=== PATIENT | male | born 1990 | race Caucasian/White ===

== ENCOUNTER 2020-04-12 10:46 | Emergency (ER) | payer SELFPAY ==
[~2020-04-12] VITALS: Ht 180.3 cm; Wt 71.7 kg
[2020-04-12 10:46] VITALS: BP 132/76
[2020-04-12] MEDS ORDERED: LIDOCAINE 2%/EPI 1:100,000 20 ML VIAL. IJ ONE (11:15)
[2020-04-12] MEDS ORDERED: NEOMY/BACITR/POLYMYXIN OINT PACKET. TP ONE (11:15)
[2020-04-12] MEDS ORDERED: IBUPROFEN 400 MG TABLET. PO ONE (11:30)
[2020-04-12] MEDS ORDERED: DIPH,PERTUSS(ACELL),TET VAC/PF 0.5 ML SYRINGE. VAX IM ONE (11:30)
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
== END 2020-04-12 13:00 | disposition home or self-care (01) ==
LOC: ER 10:46
DX: S01.81XA Laceration without foreign body of other part of head, initial encounter (principal); Y00.XXXA Assault by blunt object, initial encounter; Y93.89 Activity, other specified; Y92.89 Other specified places as the place of occurrence of the external cause; Y99.8 Other external cause status
CPT/HCPCS: 12002; 12013; 90471; 90715; 99283; 99284

== ENCOUNTER 2020-09-16 01:37 | Emergency (ER) | payer SELFPAY ==
[~2020-09-16] VITALS: Ht 180.3 cm; Wt 71.7 kg
--- NOTE | 2020-09-16 01:53 | PHYS DOC ---
Past History Past Medical History: No Pertinent History Past Surgical History: No Surgical History Smoking: Non-smoker Alcohol Use: None Drug Use: None Adult General [facility] HPI Patient is a 30-year-old male with a past medical history of anxiety and depression who presents with a chief complaint of suicidal ideation and cutting/lacerations. States he has been just having a hard time here recently with anxiety and depression and thoughts of worthlessness with increased anxiety and depression despite starting Prozac recently. States his boyfriend and he had been having trouble over the last week or 2 and tonight he broke up with him and decided to cut on himself. States initially he felt like he did not want to be alive and that so I cut himself but right now his not sure how he feels. Denies ever doing anything like this before, homicidal ideation or hallucinations. Denies any drug use. Denies any recent traumas, travels, illnesses, fevers, cold/flu symptoms. States he had a tetanus vaccination 6 months ago and is up-to-date. Review of Systems Review of Systems Review of systems otherwise unremarkable outside noted in HPI. Allergies Allergies Allergies Coded Allergies Type Severity Reaction Last Updated Verified No Known Drug Allergies 04/12/20 No Physical Exam Physical Exam Constitutional: Well developed, well nourished, no acute distress, non-toxic appearance. [] HENT: Normocephalic, atraumatic, bilateral external ears normal, oropharynx moist, Eyes: PERRLA, EOMI, conjunctiva normal, no discharge. [] Neck: Normal range of motion, no tenderness, supple, no stridor. [] Cardiovascular: Sinus bradycardia Lungs & Thorax: Bilateral breath sounds clear to auscultation [] Abdomen: soft, no tenderness, no masses, no pulsatile masses. [] Skin: Warm, dry, no erythema, no rash. [] Extremities: Patient with 3 long lacerations on left forearm. The most medial is through the fat down to the muscle fascia with no violation of muscle. Neurovascular exam intact. Hemostasis achieved. Neurologic: Alert and oriented X 3, normal motor function, normal sensory function, no focal deficits noted. [] Psychologic: Patient is tearful, anxious with thoughts of suicide and initial plan was cutting, but patient is unsure now how he feels exactly. Denies ho micidal ideation or hallucinations. Current Patient Data Lab Results Laboratory Tests Test 1/19/21 02:00 09/16/20 03:20 09/16/20 04:20 White Blood Count 6.5 x10^3/uL (4.0-11.0) Red Blood Count 4.50 x10^6/uL (4.30-5.70) Hemoglobin 13.4 g/dL (13.0-17.5) Hematocrit 39.6 % (39.0-53.0) Mean Corpuscular Volume 88 fL (79-100) Mean Corpuscular Hemoglobin 30 pg (25-35) Mean Corpuscular Hemoglobin Concent 34 g/dL (31-37) Red Cell Distribution Width 13.6 % (11.5-14.5) Platelet Count 209 x10^3/uL (140-400) Neutrophils (%) (Auto) 60 % (31-73) Lymphocytes (%) (Auto) 32 % (24-48) Monocytes (%) (Auto) 7 % (0-9) Eosinophils (%) (Auto) 1 % (0-3) Basophils (%) (Auto) 0 % (0-3) Neutrophils # (Auto) 3.9 x10^3uL (1.8-7.7) Lymphocytes # (Auto) 2.1 x10^3/uL (1.0-4.8) Monocytes # (Auto) 0.5 x10^3/uL (0.0-1.1) Eosinophils # (Auto) 0.0 x10^3/uL (0.0-0.7) Basophils # (Auto) 0.0 x10^3/uL (0.0-0.2) Sodium Level 141 mmol/L (136-145) Potassium Level 3.5 mmol/L (3.5-5.1) Chloride Level 105 mmol/L (98-107) Carbon Dioxide Level 25 mmol/L (21-32) Anion Gap 11 (6-14) Blood Urea Nitrogen 9 mg/dL (8-26) Creatinine 0.7 mg/dL (0.7-1.3) Estimated GFR (Cockcroft-Gault) 133.3 BUN/Creatinine Ratio 13 (6-20) Glucose Level 99 mg/dL (70-99) Calcium Level 8.5 mg/dL (8.5-10.1) Total Bilirubin 0.4 mg/dL (0.2-1.0) Aspartate Amino Transf (AST/SGOT) 15 U/L (15-37) Alanine Aminotransferase (ALT/SGPT) 21 U/L (16-63) Alkaline Phosphatase 47 U/L (46-116) Total Protein 6.0 g/dL (6.4-8.2) Albumin 3.6 g/dL (3.4-5.0) Albumin/Globulin Ratio 1.5 (1.0-1.7) Salicylates Level 3.5 mg/dL (2.8-20.0) Salicylate Last Dose Date Unknown Salicylate Last Dose Time Unknown Acetaminophen Level < 2 mcg/mL (10-30) Acetaminophen Last Dose Date Unknown Acetaminophen Last Dose Time Unknown Ethyl Alcohol Level < 10 mg/dL (0-10) Urine Opiates Screen Neg (NEG) Urine Methadone Screen Neg (NEG) Urine Barbiturates Neg (NEG) Urine Phencyclidine Screen Neg (NEG) Urine Amphetamine/Methamphetamine Neg (NEG) Urine Benzodiazepines Screen Pos (NEG) Urine Cocaine Screen Neg (NEG) Urine Cannabinoids Screen Pos (NEG) Urine Ethyl Alcohol Neg (NEG) SARS-CoV-2 Antigen (Rapid) Negative (NEGATIVE) EKG EKG [] Radiology/Procedures Radiology/Procedures Indication: [] 3 lacerations on left forearm. Medial approximately 20 cm. The middle approximately 10 cm. Lateral approximately 15 cm Procedure: The wounds were lavaged with 250 mils of sterile saline. LET was placed for topical anesthesia. Let sit for 30 minutes. Anesthesia achieved. 11 sutures placed on medial laceration. 6 sutures placed on middle laceration. 10 sutures placed on lateral laceration. Area cleaned again. Bandaged. The patient tolerated the procedure well Complications: No complications Heart Score Risk Factors: Risk Factors: DM, Current or recent (<one month) smoker, HTN, HLP, family history of CAD, obesity. Risk Scores: Risk Factors: DM, Current or recent (<one month) smoker, HTN, HLP, family history of CAD, obesity. Course & Med Decision Making Course & Med Decision Making Patient is a 30-year-old male who presents with suicidal ideation and self cutting with a razor Vital signs notable for bradycardia. Physical exam noted above. Appropriate labs ordered for psychiatric evaluation/clearance. Wounds cleaned extensively/lavaged with sterile water. L ED T placed for topical anesthesia and left in place for 30 minutes. Sutured lacerations without complication. Patient tolerated well. Cleaned and bandaged again. Patient up-to-date on tetanus per patient. Laboratory analysis not concerning. Urine drug screen positive for marijuana and benzodiazepines. Discussed with patient the need to talk with Pat team and possibly be admitted for continued evaluation and treatment. Patient was amenable. During pact team evaluation it was reported to me that patient jumped up, ran out of the room and then ran out the front door of the emergency department. Per nursing report, hospital security was notified who searched outside for the patient but was unable to find him. The police department was also notified but as of yet are still not reporting finding the patient. Patient's family notified, who stated they were not surprised that he left. [] Dragon Disclaimer Dragon Disclaimer This electronic medical record was generated, in whole or in part, using a voice recognition dictation system. Departure Departure: Impression: Primary Impression: Suicidal ideation Additional Impressions: Self-harming behavior Lacerations of multiple sites of left arm Disposition: 07 AMA/ELOPED/LWBS Condition: STABLE Referrals: PCP,NO (PCP) Scripts Cephalexin (CEPHALEXIN) 500 Mg Capsule 1 CAP PO TID for wound for 5 Days, #15 CAP Prov: IVY KOEHLER MD 09/16/20 Problem Qualifiers IVY KOEHLER MD Sep 16, 2020 01:52
[2020-09-16 02:28] LABS: CALCIUM 8.5 mg/dL (8.5-10.1); CREATININE 0.7 mg/dL (0.7-1.3); GFR 133.3; POTASSIUM 3.5 mmol/L (3.5-5.1)
[2020-09-16 02:30] VITALS: BP 100/45
[2020-09-16] MEDS: LIDOCAINE/EPI/TETRACAINE TOPICAL GEL 3 ML. TP ONE (02:30)
[2020-09-16 02:34] LABS: ALBUMIN 3.6 g/dL (3.4-5.0); ALBUMIN/GLOBULIN RATIO 1.5 (1.0-1.7); TOTAL BILIRUBIN 0.4 mg/dL (0.2-1.0)
[2020-09-16 02:39] LABS: ACETAMIN < 2 mcg/mL (10-30); ETHANOL < 10 mg/dL (0-10); SALIC 3.5 mg/dL (2.8-20.0)
[2020-09-16 02:53] LABS: BASO % 0 % (0-3); EOS % 1 % (0-3); HEMATOCRIT 39.6 % (39.0-53.0); HEMOGLOBIN 13.4 g/dL (13.0-17.5); LYMPH # 2.1 x10^3/uL (1.0-4.8); LYMPH % 32 % (24-48); MEAN CORPUSCULAR HEMOGLOBIN 30 pg (25-35); MEAN CORPUSCULAR HGB CONC 34 g/dL (31-37); MEAN CORPUSCULAR VOLUME 88 fL (79-100); MONO # 0.5 x10^3/uL (0.0-1.1); MONO % 7 % (0-9); NEUT # 3.9 x10^3uL (1.8-7.7); NEUT % 60 % (31-73); PLATELET COUNT 209 x10^3/uL (140-400); RED CELL DISTRIBUTION WIDTH 13.6 % (11.5-14.5); WHITE BLOOD COUNT 6.5 x10^3/uL (4.0-11.0)
[2020-09-16] MEDS ORDERED: CEPH500C PO (03:50)
[2020-09-16 03:53] LABS: BARBITURATES NEG (NEG); BENZODIAZEPINES POS (NEG); CANNABINOIDS POS (NEG); COCAINE NEG (NEG); METHADONE NEG (NEG); OPIATES NEG (NEG); PHENCYCLIDINE NEG (NEG)
[2020-09-16 04:20] LABS: AMPHETAMINE/METHAMPHETAMINE NEG (NEG)
[2020-09-16] MEDS: CEPHALEXIN 250 MG CAPSULE PO ONE (04:23)
== END 2020-09-16 04:50 | disposition left against medical advice (07) ==
LOC: ER 01:37
DX: S51.812A Laceration without foreign body of left forearm, initial encounter (principal); R45.851 Suicidal ideations; Z20.822 Contact with and (suspected) exposure to COVID-19; X78.8XXA Intentional self-harm by other sharp object, initial encounter; Y93.89 Activity, other specified; Y92.89 Other specified places as the place of occurrence of the external cause; Y99.8 Other external cause status
CPT/HCPCS: 12007; 36415; 80053; 80307; 80329; 85025; 87426; 99285; C9803; G0480; U0003